=== PATIENT | male | born 1960 | race Caucasian/White ===

== ENCOUNTER 2016-10-05 17:14 | Emergency (ER) | payer SELFPAY ==
--- NOTE | ~2016-10-05 | EKG ---
PATIENT: JAMIE TATE UNIT #: [id number] Ventricular Rate: 82 BPM Atrial Rate: 82 BPM P-R Interval: 160 ms QRS Duration: 80 ms Q-T Interval: 380 ms QTC Calculation(Bezet): 443 ms P [place]: 78 degrees Calculated R [place]: 44 degrees Calculated T [place]: 49 degrees Diagnosis Line: Sinus rhythm Diagnosis Line: Poor data quality Diagnosis Line: No previous ECGs available Diagnosis Line: Confirmed by REBEKAH CORONA MD ([id number]) on Diagnosis Line: 11/21/2016 4:05:16 PM INTERPRETING MDAleah KINGSLEY
--- NOTE | ~2016-10-05 | CR72 ---
[facility]. [facility] A Service of [facility] & [facility] RADIOLOGY TEXT RESULTS PATIENT: JAMIE TATE LOCATION: SED : 62 UNIT #: [id number] AGE: [address]: Ian Barraza MD SEX: M ORDER DR: [id number] [place] [id number] MR#: [id number] Acc #: [id number] NAME: JAMIE TATE : 1960 SEX: M STUDY DATE/TIME: 10/05/2016 17:34 UNIT: SED ROOM: STUDY DESCRIPTION: CR Chest Single View Portable Attending Physician: Ian Barraza M.D. Ordering Physician: Ian Barraza M.D. Primary Care Physician: Tonny Bonilla M.D. MEDICAL IMAGING REPORT This report is preliminary unless electronic signature is present. EXAM Portable chest, 10/05/2016 HISTORY Chest pain for 1 week. Mid chest pain. FINDINGS A single AP portable view of the chest shows both lungs to be clear. The heart is normal in size. The mediastinal contour is normal. No significant bone abnormalities are seen. IMPRESSION Normal portable chest. Dictated by... Jose Martin Hudson M.D. THIS IS AN ELECTRONICALLY VERIFIED REPORT Jose Martin Hudson M.D. at 10/06/2016 10:55 AM SOPHIA/maurice TD: 10/06/2016 02:10 JOB #: [id number] MEDICAL IMAGING REPORT
[~2016-10-05 17:14] MED LIST: AUGMENTIN PO; NEURONTIN; NO MEDICATIONS; VICODIN 5/1 TAB 5/50 PO; VITAMIN D400 UNI1
[2016-10-05 17:54] LABS: BASOPHIL# 0.1 X10e3 (0-0.3); BASOPHIL% 1.4 % (0-2.5); EOSINOPHIL% 0.4 % (0.0-7.0); HEMATOCRIT 46.2 % (38.0-50.0); HEMOGLOBIN 15.7 gm/dL (13.0-16.0); LYMPHOCYTE# 3.5 X10e3 (1.0-3.5); MEAN CELL VOLUME 92.1 FL (83-96); MEAN CORPUSCULAR HEMOGLOBIN 31.2 PG (28-34); MEAN CORPUSCULAR HGB CONC 33.9 g/dL (30-36); MEAN PLATELET VOLUME 9.6 FL (6.5-11.5); MONOCYTE# 0.7 X10e3 (0-1.0); MONOCYTE% 7.1 % (3.0-12.0); NEUTROPHIL# 5.9 X10e3 (1.5-7.1); NEUTROPHIL% 57.1 % (40-75); PLATELET COUNT 295 X10e3 (140-420); RED BLOOD COUNT 5.02 X10e (3.90-5.60); RED CELL DISTRIBUTION WIDTH 14.2 % (11.0-15.5); WHITE BLOOD COUNT 10.3 X10e3 (4.0-10.5)
[2016-10-05 17:55] LABS: DIFF IND NO
[2016-10-05 17:57] LABS: POC - CKMB <1.0 ng/mL (0.0-7.9); POC - MYOGLOBIN 49.2 ng/mL (0.0-169.0); POC - TROPONIN <0.05 ng/mL (<=0.05)
[2016-10-05 18:17] LABS: BLOOD UREA NITROGEN 13 mg/dL (9-23); BUN/CREATININE RATIO 11.81; CALCIUM SERUM 9.6 mg/dL (8.4-10.2); CARBON DIOXIDE 27 mmol/L (22-31); CHLORIDE 105 mmol/L (100-111); CREATININE SERUM 1.1 mg/dL (0.6-1.4); GLOM FILT RATE Estimated ABOVE60 mL/min (>60); GLUCOSE FASTING 91 mg/dL (70-110); POTASSIUM 3.6 mmol/L (3.5-5.1); SODIUM 141 mmol/L (135-145)
[2017-04-21] MEDS ORDERED: NEURONTIN600 MG PO (14:17)
== END 2016-10-05 19:00 | disposition home or self-care (01) ==
LOC: SED 17:14
PROVIDERS: Emergency Medicine
DX: R07.89 Other chest pain (principal); F17.200 Nicotine dependence, unspecified, uncomplicated
CPT/HCPCS: 36415; 71010; 80048; 82553; 83874; 84484; 85025; 93005; 99284

== ENCOUNTER → 2017-04-27 | Day surgery (SDC) | payer MEDICARE ==
[~2017-04-27] MED LIST changes: +NEURONTIN600 MG PO
--- NOTE | ~2017-04-27 | OR ---
Unit #: [id number] #: [id number] Patient: JAMIE TATE JR [id number] [address] [address] [id number] O MR#: [id number] NAME: JAMIE TATE JR ROOM: Date of Procedure: 04/27/2017 Admission Date: 04/27/2017 Surgeon: Tian Jose M.D. : 1960 Attending Physician: Tian Jose M.D. Primary Care Physician: Tonny Bonilla M.D. OPERATIVE REPORT PRIMARY CARE PHYSICIAN Tonny Bonilla M.D. PREOPERATIVE DIAGNOSIS Colorectal cancer screening. The patient has no family history of colon cancer. PROCEDURES PERFORMED 1. Colonoscopy and polypectomy. 2. Colonoscopy and submucosal injection. POSTOPERATIVE DIAGNOSES 1. The patient had multiple large polyps. There were two polyps in the ascending colon, mid and distal ascending colon. These were 3.5 cm each. Both were multilobulated and were removed after submucosal injection with methylcellulose and methylene blue. The polyps were removed completely and sent for histology. The gap left by polypectomy was closed with a single hemoclip on one of the two polyps. 2. A sessile polyp in the transverse colon. This was about a centimeter in size. It was removed using snare polypectomy. 3. Two polyps in the sigmoid colon. One was a pedunculated large polyp 1.5 cm in size. The second one was a small 0.8 mm polyp in the mid sigmoid colon. Both were removed using snare polypectomy and sent for histology. 4. Rest of the examination up to cecum and terminal ileum was normal. The quality of the prep was excellent. No diverticulosis or hemorrhoids were seen. RECOMMENDATIONS The interval to repeat colonoscopy will be decided based upon the histology of the polyps removed today. SEDATION USED MAC. DESCRIPTION OF PROCEDURE Following detailed explanation of the potential risks and complications of a colonoscopy, namely perforation, bleeding, and complications related to sedation, the patient was brought to GI lab and laid in the left lateral decubitus position. A digital rectal examination was performed, which was normal. Lubricated tip of the Olympus video colonoscope was inserted through the anus and advanced under direct vision. The scope was advanced Unit #: [id number] #: [id number] Patient: JAMIE TATE JR past rectosigmoid into descending colon. No diverticula were seen in this area. The scope tip was then navigated all the way up to cecum with visualization of the ileocecal valve and the appendiceal orifice. Preparation was excellent with good visualization and photodocumentation was obtained. Last several inches of the terminal ileum were also visualized after intubation of the ileocecal valve and appeared normal. Successive segments of the colonic mucosa were examined upon withdrawal. The patient was noted to have multiple polyps. There were two large sessile polyps, which were multilobulated in the mid and distal ascending colon. Both of these were removed using snare cautery polypectomy after submucosal injection of methylcellulose and methylene blue. Excellent hemostasis was achieved and photodocumentation was obtained. The gap left by polypectomy in one of the larger polyps was then treated using a single hemoclip. A third polyp was seen in the distal transverse colon and was removed using snare polypectomy. It was about a centimeter in size. Two additional polyps were found in the sigmoid colon. A pedunculated 1.5 cm polyp in the distal sigmoid colon and a 1 cm sessile polyp in the mid sigmoid colon which were sessile. Both were removed using snare polypectomy, retrieved and sent for histology. Excellent hemostasis was achieved and photodocumentation was obtained. No additional polyps were noted. The patient did not have any diverticulosis nor any hemorrhoids. The scope was then withdrawn and the patient returned to the recovery area. He tolerated the procedure without any postprocedure complications. Dictated by... Adebayo Hinkle/feliciano TD: 04/27/2017 11:16 JOB #: [id number] CC: Tonny Bonilla M.D. OPERATIVE REPORT Page 1 of 1 X Tian Jose MD X PROCEDURE OPERATIVE NOTE
== END | disposition home or self-care (01) ==
LOC: COPS 06:32
DX: Z12.11 Encounter for screening for malignant neoplasm of colon (principal); D12.3 Benign neoplasm of transverse colon; D12.2 Benign neoplasm of ascending colon; D12.5 Benign neoplasm of sigmoid colon; F17.210 Nicotine dependence, cigarettes, uncomplicated; Z80.0 Family history of malignant neoplasm of digestive organs; Z88.5 Allergy status to narcotic agent; Z98.890 Other specified postprocedural states
CPT/HCPCS: 88305; J2250